=== PATIENT | female | born 1995 | race Hispanic/Latino ===

== ENCOUNTER 2018-10-29 19:31 | Emergency (ER) | payer SELFPAY ==
[2018-10-29 19:50] VITALS: BP 123/80
[2018-10-29] MEDS ORDERED: NORCO 5/325 PO ONE (22:51)
--- NOTE | 2018-10-29 22:57 | Emergency Department Report ---
Upper Extremity - [facility] Chief Complaint: Extremity Injury, Upper Stated Complaint: RIGHT WRIST PAIN Time Seen by Provider: 10/29/18 22:19 Upper Extremity: Right Wrist Occurred When: Today Mechanism: Hit with Object Severity: moderate Symptoms: Yes Pain with Movement, Yes Limited Range of Movement, Yes Swelling, Yes Bruising/Ecchymosis (ulnar ecchymosis bruising ), No Deformity, No Numbness, No Weakness, No Laceration or Abrasion Other History: pt states she fell backwards and struck her right wrist on wooden closet door. now with pain swelling bruising tingling ED Review of Systems ROS: Stated complaint: RIGHT WRIST PAIN Other details as noted in HPI Constitutional: denies: chills, fever Eyes: denies: eye pain, eye discharge, vision change ENT: denies: ear pain, throat pain Respiratory: denies: cough, shortness of breath, wheezing Cardiovascular: denies: chest pain, palpitations Endocrine: no symptoms reported Gastrointestinal: denies: abdominal pain, nausea, diarrhea Genitourinary: denies: urgency, dysuria, discharge Musculoskeletal: joint swelling Skin: denies: rash, lesions Neurological: denies: headache, weakness, paresthesias Psychiatric: denies: anxiety, depression Hematological/Lymphatic: denies: easy bleeding, easy bruising ED Past Medical Hx - Past Medical History Hx Asthma: Yes Additional medical history: PCOS - Surgical History Additional Surgical History: PATRIAL OVARY REMOVED - Social History Smoking Status: Never Smoker Substance Use Type: None - Medications Home Medications: Home Medications Medication Instructions Recorded Confirmed Last Taken Type Cyclobenzaprine [Flexeril] 10 mg PO TID PRN #30 tablet 10/29/18 Unknown Rx Naproxen 500 mg PO BID PRN #30 tablet 10/29/18 Unknown Rx Upper Extremity Exam - Exam General: Vital signs noted. No distress. Alert and acting appropriately. Head and Torso: No HEENT Abnormality, No Neck Tenderness, No Chest/Lungs Abnormality, No Abdominal Tenderness, No Back Tenderness Shoulder Exam: Yes Normal Range of Motion in Shoulder, No Shoulder Tenderness, No Clavicle Tenderness, No Shoulder Deformity, No AC Joint Tenderness Arm Exam: No Arm/Humerus Tenderness, No Arm Deformity Elbow: No Elbow Tenderness, No Normal Range of Motion in Elbow, No Elbow Deformity Forearm: No Forearm Tenderness, No Forearm Deformity, No Pain with Pronation, No Pain with Supination Wrist: Yes Wrist Tenderness, No Normal ROM in Wrist (pain with flexion and extension), No Wrist Deformity, No Snuffbox Tenderness, No Pain with Axial Thumb Compression Hand: Yes Normal ROM in Digit(s), No Hand Tenderness, No Hand Deformity, No Digit Tenderness, No Digit(s) Deformity, No Tendon Dysfunction CMS Exam: Yes Normal Distal Pulses, Yes Normal Capillary Refill, Yes Normal Distal Sensation, No Broken Skin ED Course Vital Signs 10/29/18 19:47 Temperature 97.8 F Pulse Rate 91 H Respiratory 16 Rate Blood Pressure 123/80 O2 Sat by Pulse 97 Oximetry ED Medical Decision Making - Radiology Data Radiology results: report reviewed, image reviewed no fractur no soft tissue abnormality - Medical Decision Making xray wrist no fracture no soft tissue abnormality , exam security sergeant equal no snuff box tenderness no pain with thumb axial loading distal pulse intact , plan: tx for wrist sprain , Velcro wrist splint placed at this time pt will follow up with orth in 2-3 days, return to ed if symptoms worsen pt verbalized agreement and understanding of same. Critical care attestation.: If time is entered above; I have spent that time in minutes in the direct care of this critically ill patient, excluding procedure time. ED Disposition Clinical Impression: Sprain of wrist, right Qualifiers: Encounter type: initial encounter Qualified Code(s): S63.501A - Unspecified sprain of right wrist, initial encounter Disposition: - TO HOME OR SELFCARE Is pt being admited?: No Condition: Stable Instructions: Wrist Sprain (ED), Wrist Injury (ED) Prescriptions: Cyclobenzaprine [Flexeril] 10 mg PO TID PRN #30 tablet PRN Reason: Muscle Spasm Naproxen 500 mg PO BID PRN #30 tablet PRN Reason: pain Referrals: ANAYELI CHAVARRIA MD [Staff Physician] - 3-5 Days Forms: Work/School Release Form(ED) Time of Disposition: 22:59
--- NOTE | 2018-11-01 08:17 | XRay Report ---
FINAL REPORT EXAM: XR WRIST 3+V RT HISTORY: wrist injury TECHNIQUE: AP, lateral, and oblique views of the right wrist PRIORS: None. FINDINGS: No evidence of acute fracture or dislocation is seen. The soft tissues are unremarkable with no soft tissue swelling or radiopaque foreign bodies. Joint spaces are maintained. IMPRESSION: No acute soft tissue or bony abnormality identified.
== END 2018-10-29 23:16 | disposition home or self-care (01) ==
LOC: ED 19:31
DX: S63.501A Unspecified sprain of right wrist, initial encounter (principal); J45.909 Unspecified asthma, uncomplicated; W01.190A Fall on same level from slipping, tripping and stumbling with subsequent striking against furniture, initial encounter; Y93.89 Activity, other specified; Y92.89 Other specified places as the place of occurrence of the external cause; Y99.8 Other external cause status